=== PATIENT | female | born 1960 | race Caucasian/White ===

== ENCOUNTER 2017-02-02 01:13 | Emergency (ER) | payer BC ==
[2017-02-02] MEDS ORDERED: Sodium Chloride 0.9% 1000 ML 1,000 ML IV STA (01:15)
--- NOTE | 2017-02-02 01:27 | ERPHSYRPT ---
- History of Present Illness Time Seen by Provider: 02/02/17 01:13 Source: patient Exam Limitations: no limitations Physician History: ABOUT 90 MINUTES AGO PT STARTED WITH SHARP POSTERIOR THIGH PAIN, DIAPHORESIS, SHORTNESS OF AIR, HEADACHE AND IMPENDING FAINT. 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 PT ALSO C/O LIGHT BROWN DIARRHEA WITHOUT BLOOD TONIGHT. Allergies/Adverse Reactions: Penicillins Allergy (Mild, Verified 02/02/17 01:38) Home Medications: Famotidine 20 mg [Pepcid 20 MG] 20 mg PO DAILY 02/02/17 [History] Levothyroxine Sodium [Synthroid] 200 mcg PO DAILY 02/02/17 [History] Lisinopril 5 mg [Zestril 5 MG] 5 mg PO DAILY 02/02/17 [History] Hx Tetanus, Diphtheria Vaccination/Date Given: No Hx Influenza Vaccination/Date Given: Yes Hx Pneumococcal Vaccination/Date Given: No - Review of Systems Respiratory: Dyspnea Abdominal/Gastrointestinal: Diarrhea Musculoskeletal: Other (BILATERAL POSTERIOR THIGH PAIN TONIGHT) Neurological: Headache Endocrine: Excessive Sweating All Other Systems: Reviewed and Negative - Past Medical History Pertinent Past Medical History: Yes Neurological History: No Pertinent History ENT History: No Pertinent History Cardiac History: No Pertinent History Respiratory History: No Pertinent History Endocrine Medical History: No Pertinent History Musculoskeletal History: Osteoarthritis GI Medical History: Diverticulitis, Diverticulosis History: No Pertinent History Psycho-Social History: No Pertinent History Female Reproductive Disorders: No Pertinent History - Past Surgical History Past Surgical History: Yes Neuro Surgical History: No Pertinent History Cardiac: No Pertinent History Respiratory: No Pertinent History Gastrointestinal: No Pertinent History Genitourinary: No Pertinent History Musculoskeletal: Other Female Surgical History: Section Other Surgical History: Carpal tunnel surgery. Colonoscopy - Social History Smoking Status: Current every day smoker How long have you smoked: 20 Exposure to second hand smoke: No Drug Use: none Patient Lives Alone: No - Female History Hx Now: No - Nursing Vital Signs Nursing Vital Signs: Initial Vital Signs Temperature 98.1 F 02/02/17 01:20 Pulse Rate 76 02/02/17 01:20 Respiratory Rate 18 02/02/17 01:20 Blood Pressure 130/75 02/02/17 01:20 O2 Sat by Pulse Oximetry 98 02/02/17 01:20 Pain Scale Pain Intensity 0 - Physical Exam General Appearance: alert Eye Exam: PERRL/EOMI Ears, Nose, Throat Exam: TMs normal, pharynx normal, moist mucous membranes Neck Exam: normal inspection Respiratory Exam: lungs clear Cardiovascular Exam: normal heart sounds Gastrointestinal/Abdomen Exam: soft, normal bowel sounds Back Exam: normal range of motion Extremity Exam: normal inspection, normal range of motion, No pedal edema Neurologic Exam: alert, cooperative, normal mood/affect, sensation nml, No motor deficits Skin Exam: warm, dry - Course Nursing assessment & vital signs reviewed: Yes EKG Interpreted by Me: RATE (58), Sinus Alberto, NORMAL AXIS, NORMAL INTERVALS - Radiology Exams Chest X-ray Interpretation: Interpreted by me, No Pneumonia Ordered Tests: Active Orders 24 hr Category Date Time Status Digital Measurement Advisor STAT Care 02/02/17 01:19 Active EKG-ER Only STAT Care 02/02/17 01:15 Active IV Insertion STAT Care 02/02/17 01:15 Active Oxygen-ED Only NASAL CANNULA 2 lpm Care 02/02/17 01:15 Active CHEST 2 VIEWS (PA AND LAT) Stat Exams 02/02/17 01:18 Taken AMYLASE Stat Lab 02/02/17 01:36 Completed CBC W DIFF Stat Lab 02/02/17 01:36 Completed CK-Creatinine Phosphokinase Urgent Lab 02/02/17 01:36 Completed CMP Stat Lab 02/02/17 01:36 Completed CULTURE,URINE Stat Lab 02/02/17 02:15 Received D-DIMER QUANTITATION Stat Lab 02/02/17 01:36 Completed ETHYL ALCOHOL Stat Lab 02/02/17 01:36 Completed LIPASE Stat Lab 02/02/17 01:36 Completed MAGNESIUM Stat Lab 02/02/17 01:36 Completed NT PRO BNP Stat Lab 02/02/17 01:36 Completed Occult Blood,Stool Other Stat Lab 02/02/17 01:45 Uncollected TROPONIN Q3H Lab 02/02/17 01:36 Completed TROPONIN Q3H Lab 02/02/17 04:30 Ordered TROPONIN Q3H Lab 02/02/17 07:30 Ordered TROPONIN Q3H Lab 02/02/17 10:30 Ordered TROPONIN Q3H Lab 02/02/17 13:30 Ordered UA W/ MICROSCOPIC Stat Lab 02/02/17 02:15 Completed Urine Triage Profile Stat Lab 02/02/17 02:20 Completed Medication Summary Discontinued Medications Generic Name Dose Route Start Last Admin Trade Name Marylu PRN Reason Stop Dose Admin Hydromorphone HCl 0.5 mg 02/02/17 03:39 Hydromorphone 1 Mg/Ml Ampule IV 02/02/17 03:40 STAT ONE Sodium Chloride 1,000 mls @ 999 mls/hr 02/02/17 01:15 02/02/17 01:43 Sodium Chloride 0.9% 1000 Ml IV 02/02/17 02:15 999 mls/hr .Q1H1M STA Administration Sodium Chloride Confirm 02/02/17 01:42 Sodium Chloride 0.9% 1000 Ml Administered 02/02/17 01:43 Dose 1,000 mls @ ud .ROUTE .STK-MED ONE Promethazine HCl 12.5 mg 02/02/17 03:39 Phenergan 25 Mg Inj IV 02/02/17 03:40 STAT ONE Trimethoprim/Sulfamethoxazole 1 tab 02/02/17 03:35 Bactrim Ds Tablet PO 02/02/17 03:36 STAT ONE Lab/Rad Data: Laboratory Result Diagrams 02/02/17 01:36 02/02/17 01:36 Laboratory Results 02/02/17 02/02/17 02/02/17 Range/Units 02:20 02:15 01:36 WBC (4.0-10.5) K/mm3 RBC (4.1-5.4) M/mm3 Hgb (12.0-16.0) gm/dl Hct (35-47) % MCV (78-100) fl MCH (26-32) pg MCHC (32-36) g/dl RDW (11.5-14.0) % Plt Count (150-450) K/mm3 MPV (6-9.5) fl Gran % (36.0-66.0) % Lymphocytes % (24.0-44.0) % Monocytes % (0.0-12.0) % Eosinophils % (0.00-5.0) % Basophils % (0.0-0.4) % Basophils # (0-0.4) D-Dimer (0-500) ng/mL Sodium (136-145) mEq/L Potassium (3.5-5.1) mEq/L Chloride (98-107) mEq/L Carbon Dioxide (21-32) mEq/L Anion Gap (5-15) MEQ/L BUN (9-20) mg/dL Creatinine (0.55-1.30) mg/dl Estimated GFR ML/MIN Glucose (70-110) MG/DL Calcium (8.5-10.1) mg/dL Magnesium (1.8-2.4) mg/dL Total Bilirubin (0.2-1.0) mg/dL AST (15-37) U/L ALT (12-78) U/L Alkaline Phosphatase (46-116) U/L Creatine Kinase 89 (26-192) U/L Troponin I < 0.017 (0.000-0.056) ng/ml NT-Pro-B Natriuret Pep (0-125) pg/ml Serum Total Protein (6.4-8.2) gm/dL Albumin (3.4-5.0) g/dL Amylase (25-115) U/L Lipase (73-393) U/L Ur Collection Type VOID Urine Color YELLOW (YELLOW) Urine Appearance SLIGHTLY CLOUDY (CLEAR) Urine pH 6.0 (5-6) Ur Specific [place] 1.025 (1.005-1.025) Urine Protein TRACE (Negative) Urine Ketones NEGATIVE (NEGATIVE) Urine Blood 50 (0-5) Ab[place]han/ul Urine Nitrite NEGATIVE (NEGATIVE) Urine Bilirubin NEGATIVE (NEGATIVE) Urine Urobilinogen NORMAL (0-1) mg/dL Ur Leukocyte Esterase 2+ (NEGATIVE) Urine Microscopic RBC 0-2 (0-2) /HPF Urine Microscopic WBC 2-5 (0-5) /HPF Ur Epithelial Cells MODERATE (FEW) /HPF Urine Bacteria FEW (NEGATIVE) /HPF Urine Mucus SLIGHT (NEGATIVE) /HPF Urine Culture Reflexed YES (NO) Urine Glucose NEGATIVE (NEGATIVE) mg/dL Urine Opiates Level NEG. (NEGATIVE) Ur Methadone NEG. (NEGATIVE) Urine Barbiturates NEG. (NEGATIVE) Ur Phencyclidine (PCP) NEG. (NEGATIVE) Urine Amphetamine NEG. (NEGATIVE) U Benzodiazepine Level NEG. (NEGATIVE) Urine Cocaine NEG. (NEGATIVE) Urine Marijuana (THC) NEG. (NEGATIVE) Ethyl Alcohol (0.00-0.01) % Specimen Received 02/02/17 0215 02/02/17 02/02/17 02/02/17 Range/Units 01:36 01:36 01:36 WBC 7.4 (4.0-10.5) K/mm3 RBC 3.98 L (4.1-5.4) M/mm3 Hgb 12.4 (12.0-16.0) gm/dl Hct 37.3 (35-47) % MCV 93.7 (78-100) fl MCH 31.1 (26-32) pg MCHC 33.2 (32-36) g/dl RDW 12.8 (11.5-14.0) % Plt Count 253 (150-450) K/mm3 MPV 9.3 (6-9.5) fl Gran % 61.2 (36.0-66.0) % Lymphocytes % 29.0 (24.0-44.0) % Monocytes % 7.9 (0.0-12.0) % Eosinophils % 1.4 (0.00-5.0) % Basophils % 0.5 (0.0-0.4) % Basophils # 0.04 (0-0.4) D-Dimer 361 (0-500) ng/mL Sodium 143 (136-145) mEq/L Potassium 3.8 (3.5-5.1) mEq/L Chloride 106 (98-107) mEq/L Carbon Dioxide 30.5 (21-32) mEq/L Anion Gap 10.0 (5-15) MEQ/L BUN 16 (9-20) mg/dL Creatinine 0.76 (0.55-1.30) mg/dl Estimated GFR > 60 ML/MIN Glucose 81 (70-110) MG/DL Calcium 9.0 (8.5-10.1) mg/dL Magnesium 1.9 (1.8-2.4) mg/dL Total Bilirubin 0.20 (0.2-1.0) mg/dL AST 19 (15-37) U/L ALT 21 (12-78) U/L Alkaline Phosphatase 94 (46-116) U/L Creatine Kinase (26-192) U/L Troponin I (0.000-0.056) ng/ml NT-Pro-B Natriuret Pep 58 (0-125) pg/ml Serum Total Protein 7.2 (6.4-8.2) gm/dL Albumin 3.5 (3.4-5.0) g/dL Amylase 46 (25-115) U/L Lipase 115 (73-393) U/L Ur Collection Type Urine Color (YELLOW) Urine Appearance (CLEAR) Urine pH (5-6) Ur Specific [place] (1.005-1.025) Urine Protein (Negative) Urine Ketones (NEGATIVE) Urine Blood (0-5) Abrahan/ul Urine Nitrite (NEGATIVE) Urine Bilirubin (NEGATIVE) Urine Urobilinogen (0-1) mg/dL Ur Leukocyte Esterase (NEGATIVE) Urine Microscopic RBC (0-2) /HPF Urine Microscopic WBC (0-5) /HPF Ur Epithelial Cells (FEW) /HPF Urine Bacteria (NEGATIVE) /HPF Urine Mucus (NEGATIVE) /HPF Urine Culture Reflexed (NO) Urine Glucose (NEGATIVE) mg/dL Urine Opiates Level (NEGATIVE) Ur Methadone (NEGATIVE) Urine Barbiturates (NEGATIVE) Ur Phencyclidine (PCP) (NEGATIVE) Urine Amphetamine (NEGATIVE) U Benzodiazepine Level (NEGATIVE) Urine Cocaine (NEGATIVE) Urine Marijuana (THC) (NEGATIVE) Ethyl Alcohol < 0.010 (0.00-0.01) % Specimen Received - Departure Time of Disposition: 03:51 Departure Disposition: Home Clinical Impression: BILATERAL THIGH PAIN, DYSPNEA, IMPENDING FAINT, UTI, ARTHRITIS Condition: Stable Critical Care Time: No Referrals: CHERI WOODWARD MD [Primary Care Provider] - Instructions: Fainting, Muscle Strain, Urinary Tract Infection (UTI) Additional Instructions: FOLLOW UP WITH PRIVATE DOCTOR TOMORROW. Prescriptions: Cyclobenzaprine HCl [Flexeril] 10 mg PO Q8H PRN #20 tablet Smz/Tmp Ds Tablet [Bactrim Ds Tablet] 1 udtab PO BID #20 tablet
[2017-02-02] MEDS ORDERED: Sodium Chloride 0.9% 1000 ML 1,000 ML ONE (01:42)
[2017-02-02 01:43] LABS: BASOPHIL % 0.5 % (0.0-0.4); Eosinophil % 1.4 % (0.00-5.0); Granulocytes % 61.2 % (36.0-66.0); Mean Cell Volume 93.7 fl (78-100); Mean Platelet Volume 9.3 fl (6-9.5); Monocytes % 7.9 % (0.0-12.0); Platelet Count 253 K/mm3 (150-450); Red Blood Count 3.98 M/mm3 (4.1-5.4); Red Cell Distribution Width 12.8 % (11.5-14.0); White Blood Count 7.4 K/mm3 (4.0-10.5)
[2017-02-02 01:44] LABS: Mean Corpuscular Hemoglobin 31.1 pg (26-32)
[2017-02-02 02:12] LABS: ALBUMIN 3.5 g/dL (3.4-5.0); ALKALINE PHOSPHATASE 94 U/L (46-116); BLOOD UREA NITROGEN 16 mg/dL (9-20); CHLORIDE 106 mEq/L (98-107); Carbon Dioxide 30.5 mEq/L (21-32); ETHYL ALCOHOL < 0.010 % (0.00-0.01); Glucose 81 MG/DL (70-110); LIPASE 115 U/L (73-393); MAGNESIUM 1.9 mg/dL (1.8-2.4); Potassium 3.8 mEq/L (3.5-5.1); SGOT/AST 19 U/L (15-37); SGPT/ALT 21 U/L (12-78); SODIUM 143 mEq/L (136-145); Total Protein 7.2 gm/dL (6.4-8.2)
[2017-02-02 02:13] LABS: TROPONIN < 0.017 ng/ml (0.000-0.056)
[2017-02-02 02:39] LABS: Bacteria FEW /HPF (NEGATIVE); Bilirubin NEGATIVE (NEGATIVE); Blood 50 Ery/ul (0-5); Collection Type VOID; Epithelial Cells MODERATE /HPF (FEW); Glucose NEGATIVE (NEGATIVE); Leukocyte Esterase 2+ (NEGATIVE); Mucus SLIGHT /HPF (NEGATIVE)
[2017-02-02 02:40] LABS: ADD URINE CULTURE? YES (NO); COMPLETE URINE MICROSCOPIC? YES
[2017-02-02] MEDS ORDERED: BACTRIM DS TABLET PO ONE ×2 (03:35→03:47)
[2017-02-02] MEDS ORDERED: Phenergan 25 MG INJ IV ONE (03:39)
[2017-02-02] MEDS ORDERED: Hydromorphone 1 mg/ml Ampule IV ONE (03:39)
[2017-02-02] MEDS ORDERED: Phenergan 25 MG INJ ONE (03:46)
[2017-02-02] MEDS ORDERED: Hydromorphone 1 mg/ml Ampule ONE (03:47)
[2017-02-02 04:02] VITALS: BP 132/79; PULSE 67; O2SAT 97
--- NOTE | 2017-02-02 09:11 | XRAY ---
Indication: Short of breath, syncope, and leg cramps. Comparison: None AP/lateral chest hyperinflated with minimal lingular fibrosis/scarring. Remaining heart and lungs unremarkable. Bony thorax intact with mild spinal degenerative changes and mild dextroscoliosis. Impression: Nonacute hyperinflated chest with chronic features.
== END 2017-02-02 04:15 | disposition home or self-care (01) ==
LOC: ED 01:13
DX: M79.652 Pain in left thigh (principal); M79.651 Pain in right thigh; R06.00 Dyspnea, unspecified; N39.0 Urinary tract infection, site not specified; M19.90 Unspecified osteoarthritis, unspecified site; R55 Syncope and collapse; R51 Headache
CPT/HCPCS: 36415; 71020; 80053; 80307; 81000; 82150; 82550; 83690; 83735; 83880; 84484; 85025; 85379; 87086; 93005; 93041; 96360; 96374; 96375; 99284; G0481; J1170; J2550; A9270-GY

== ENCOUNTER 2021-07-28 01:03 | Emergency (ER) | payer MEDICARE ==
[2021-07-28] MEDS ORDERED: MORPHINE SULFATE 2 MG INJ IV ONE (01:29)
[2021-07-28] MEDS ORDERED: Zofran 4 MG/2 ML VIAL IV ONE (01:29)
[2021-07-28] MEDS ORDERED: Sodium Chloride 0.9% 1000 ML 1,000 ML IV SCH (01:30)
[2021-07-28] MEDS ORDERED: Zofran 4 MG/2 ML VIAL ONE (01:33)
[2021-07-28] MEDS ORDERED: MORPHINE SULFATE 2 MG INJ ONE (01:33)
[2021-07-28] MEDS ORDERED: Sodium Chloride 0.9% 1000 ML 1,000 ML ONE (01:34)
--- NOTE | 2021-07-28 01:37 | ERPHSYRPT ---
- History of Present Illness Time Seen by Provider: 07/28/21 01:20 Historian: patient Exam Limitations: no limitations Patient Subjective Stated Complaint: Patient c/o left lower adominal pait. She states the pain began yesterday evening in her right lower abdomen and was intermittent. The pain is now constant and has moved into her left lower abdomen and right lower back. Patient reports loose stools yesterday evening; last one around 3 or 4pm. States, "it feels like I have diverticulitis again." Triage Nursing Assessment: Patient ambulated back to ED holding her left lower abdomen. She is alert and oriented and answering questions appropriately. Hypoactive bowel sounds noted in upper abd quads. Nurse unable to hear any bowel sounds in lower quads. Patient jerked/jumped when palpating left lower abdomen. No SOB noted. Physician History: Patient is a 61-year-old female presents to our ED with complaints of lower abdominal pain. Patient states pain started yesterday on the right lower quadrant. Pain was intermittent. Patient states the pain is now moved to her left lower quadrant. Pain associated with loose stools. No nausea or vomiting. Patient took Aleve at noon today. Patient took Tylenol arthritis at 5 PM. No trauma. No fever. No rash. Symptoms are moderate in intensity. Pain worse with abdominal palpation. Pain improved with rest. Patient voices no other complaints or concerns at this time. Timing/Duration: yesterday Activities at Onset: none Quality: aching Abdominal Pain Onset Location: LLQ Pain Radiation: back Severity of Pain-Max: moderate Severity of Pain-Current: mild Modifying Factors: Improves With: palpation Associated Symptoms: other (Diarrhea) Previous symptoms: same symptoms as today Allergies/Adverse Reactions: Penicillins Allergy (Mild, Verified 07/28/21 01:05) cephalexin [From Keflex] Allergy (Verified 07/28/21 01:05) Home Medications: Albuterol Sulfate [Albuterol Sulfate Hfa] 2 puff PO Q4H PRN PRN 07/28/21 [History] Alendronate Sodium 1 tab PO WEEKLY 07/28/21 [History] Atorvastatin Calcium 1 tab PO HS 07/28/21 [History] Cetirizine HCl 1 tab PO DAILY 07/28/21 [History] Cholecalciferol (Vitamin D3) [Vitamin D3] 1 cap PO DAILY 07/28/21 [History] Duloxetine HCl 30 mg [Cymbalta 30 MG Capsule] 1 tab PO DAILY 07/28/21 [History] Fluticasone Propionate [Flonase Allergy Relief] 2 spray INTRANASAL DAILY 07/28/21 [History] Levothyroxine Sodium [Synthroid] 1 tab PO DAILY 07/28/21 [History] lisinopriL [Lisinopril] 1 tab PO DAILY 07/28/21 [History] Hx Tetanus, Diphtheria Vaccination/Date Given: Yes Hx Influenza Vaccination/Date Given: Yes Hx Pneumococcal Vaccination/Date Given: Yes Immunizations Up to Date: Yes Travel Risk - International Travel Have you traveled outside of the country in past 3 weeks: No - Coronavirus Screening Are you exhibiting any of the following symptoms?: No Close contact with a COVID-19 positive Pt in past 14-21 Days: No - Vaccine Status Have you recieved a Covid-19 vaccination: Yes [employer] Feeder: Moderna - Vaccination Dates Date of 2cond Vaccination (if applicable): 2020 - Review of Systems Constitutional: No Symptoms, No Fever, No Chills Eyes: No Symptoms Ears, Nose, & Throat: No Symptoms Respiratory: No Symptoms, No Cough, No Dyspnea Cardiac: No Symptoms, No Chest Pain, No Edema, No Syncope Abdominal/Gastrointestinal: No Symptoms, No Abdominal Pain, No Nausea, No Vomiting, No Diarrhea Genitourinary Symptoms: No Symptoms, No Dysuria Musculoskeletal: No Symptoms, No Back Pain, No Neck Pain Skin: No Symptoms, No Rash Neurological: No Symptoms, No Dizziness, No Focal Weakness, No Sensory Changes Psychological: No Symptoms Endocrine: No Symptoms Hematologic/Lymphatic: No Symptoms Immunological/Allergic: No Symptoms All Other Systems: Reviewed and Negative - Past Medical History Pertinent Past Medical History: Yes Neurological History: No Pertinent History ENT History: No Pertinent History Cardiac History: Arrhythmia, High Cholesterol, Hypertension, Other Respiratory History: Asthma Endocrine Medical History: Hypoglycemia, Thyroid Cancer Musculoskeletal History: Arthritis, Osteoarthritis, Other GI Medical History: Diverticulitis, Diverticulosis History: No Pertinent History Psycho-Social History: No Pertinent History Female Reproductive Disorders: No Pertinent History Other Medical History: Osteopenia - Past Surgical History Past Surgical History: Yes Neuro Surgical History: No Pertinent History Cardiac: No Pertinent History Respiratory: No Pertinent History Gastrointestinal: No Pertinent History Genitourinary: No Pertinent History Musculoskeletal: Other Female Surgical History: Section Other Surgical History: Carpal tunnel surgery, total knee replacement (lt), thyroid removed due to CA, Colonoscopy - Social History Smoking Status: Former smoker How long have you smoked: 20 Exposure to second hand smoke: No Drug Use: none Patient Lives Alone: No - Nursing Vital Signs Nursing Vital Signs: Initial Vital Signs Temperature 97.9 F 07/28/21 01:07 Pulse Rate 82 07/28/21 01:07 Respiratory Rate 18 07/28/21 01:07 Blood Pressure 158/105 07/28/21 01:07 O2 Sat by Pulse Oximetry 98 07/28/21 01:07 Pain Scale Pain Intensity 5 - Physical Exam General Appearance: no apparent distress, alert Eye Exam: PERRL/EOMI, eyes nml inspection Ears, Nose, Throat Exam: normal ENT inspection, pharynx normal, moist mucous membranes Neck Exam: normal inspection, non-tender, supple, full range of motion Respiratory Exam: normal breath sounds, lungs clear, No respiratory distress Cardiovascular Exam: regular rate/rhythm, normal heart sounds Gastrointestinal/Abdomen Exam: soft, tenderness (Left lower quadrant tenderness to palpation. Hypoactive bowel sounds overlying soft tissue intact.), guarding ( Guarding present), No mass Back Exam: normal inspection, normal range of motion, No CVA tenderness, No vertebral tenderness Extremity Exam: normal inspection, normal range of motion, pelvis stable Neurologic Exam: alert, oriented x 3, cooperative, normal mood/affect, nml cerebellar function, sensation nml, No motor deficits Skin Exam: normal color, warm, dry Lymphatic Exam: No adenopathy SpO2 Interpretation: normal SpO2: 98 O2 Delivery: Room Air - Course Nursing assessment & vital signs reviewed: Yes - CT Exams Abdomen/Pelvis CT Interpretation: Tele-radiologist Report (Diverticulosis is marked in the colon. Short segment of distal descending colonic wall thickening consistent with acute colitis/diverticulitis. As an underlying colonic malignancy cannot be excluded a follow-up examination after course of treatment is recommended) Ordered Tests: Active Orders 24 hr Category Date Time Status IV Insertion STAT Care 07/28/21 01:29 Active ABDOMEN AND PELVIS W CONTRAST [CT] Stat Exams 07/28/21 01:30 Taken CBC W DIFF Stat Lab 07/28/21 01:29 Completed CMP Stat Lab 07/28/21 01:29 Completed LIPASE Stat Lab 07/28/21 01:29 Completed TROPONIN Q3H Lab 07/28/21 01:30 Completed TROPONIN Q3H Lab 07/28/21 04:30 Ordered TROPONIN Q3H Lab 07/28/21 07:30 Ordered TROPONIN Q3H Lab 07/28/21 10:30 Ordered TROPONIN Q3H Lab 07/28/21 13:30 Ordered Medication Summary Generic Name Dose Route Start Last Admin Trade Name Frezuleika PRN Reason Stop Dose Admin Sodium Chloride 1,000 mls @ 100 mls/hr 07/28/21 01:30 07/28/21 01:37 Sodium Chloride 0.9% 1000 Ml IV 08/27/21 01:29 100 mls/hr .Q10H MIGUEL ANGEL Administration Metronidazole 500 mg 07/28/21 04:22 Metronidazole 500 Mg Tablet PO 07/28/21 04:23 STAT ONE Discontinued Medications Generic Name Dose Route Start Last Admin Trade Name Marylu PRN Reason Stop Dose Admin Hydrocodone Bitart/Acetaminophen 4 tab 07/28/21 04:06 07/28/21 04:08 Hydrocodone/Apap 5/325 Mg Tablet PO 07/28/21 04:07 4 tab STAT ONE Administration Hydrocodone Bitart/Acetaminophen Confirm 07/28/21 04:08 Hydrocodone/Apap 5/325 Mg Tablet Administered 07/28/21 04:09 Dose 4 tab .ROUTE .STK-MED ONE Morphine Sulfate 2 mg 07/28/21 01:29 07/28/21 01:36 Morphine Sulfate 2 Mg/Ml Inj IV 07/28/21 01:30 2 mg STAT ONE Administration Morphine Sulfate Confirm 07/28/21 01:33 Morphine Sulfate 2 Mg/Ml Inj Administered 07/28/21 01:34 Dose 2 mg .ROUTE .STK-MED ONE Morphine Sulfate 4 mg 07/28/21 03:50 07/28/21 04:01 Morphine Sulfate 4 Mg/Ml Injection IV 07/28/21 03:51 4 mg STAT ONE Administration Morphine Sulfate Confirm 07/28/21 04:00 Morphine Sulfate 4 Mg/Ml Injection Administered 07/28/21 04:01 Dose 4 mg .ROUTE .STK-MED ONE Ondansetron HCl 4 mg 07/28/21 01:29 07/28/21 01:36 Ondansetron Hcl 4 Mg/2 Ml Vial IV 07/28/21 01:30 4 mg STAT ONE Administration Ondansetron HCl Confirm 07/28/21 01:33 Ondansetron Hcl 4 Mg/2 Ml Vial Administered 07/28/21 01:34 Dose 4 mg .ROUTE .STK-MED ONE Trimethoprim/Sulfamethoxazole 1 tab 07/28/21 04:07 07/28/21 04:12 Smz/Tmp Ds Tablet 1 Tablet PO 07/28/21 04:08 1 tab STAT STA Administration Trimethoprim/Sulfamethoxazole Confirm 07/28/21 04:11 Smz/Tmp Ds Tablet 1 Tablet Administered 07/28/21 04:12 Dose 1 tab PO .STK-MED ONE Lab/Rad Data: Laboratory Result Diagrams 07/28/21 01:29 07/28/21 01:29 Laboratory Results 07/28/21 07/28/21 07/28/21 Range/Units 01:32 01:30 01:29 WBC (4.0-10.5) K/mm3 RBC (4.1-5.4) M/mm3 Hgb (12.0-16.0) gm/dl Hct (35-47) % MCV (78-100) fl MCH (26-32) pg MCHC (32-36) g/dl RDW (11.5-14.0) % Plt Count (150-450) K/mm3 MPV (7.5-11.0) fl Gran % (36.0-66.0) % Eos # (Auto) (0-0.5) Absolute Lymphs (auto) (1.0-4.6) Absolute Monos (auto) (0.0-1.3) Lymphocytes % (24.0-44.0) % Monocytes % (0.0-12.0) % Eosinophils % (0.00-5.0) % Basophils % (0.0-0.4) % Absolute Granulocytes (1.4-6.9) Basophils # (0-0.4) Sodium 140 (137-145) mmol/L Potassium 4.4 (3.5-5.1) mmol/L Chloride 103 (98-107) mmol/L Carbon Dioxide 24 (22-30) mmol/L Anion Gap 17.3 H (5-15) MEQ/L BUN 10 (7-17) mg/dL Creatinine 0.58 (0.52-1.04) mg/dL Estimated GFR > 60.0 ML/MIN Glucose 110 H (74-106) mg/dL Calcium 9.8 (8.4-10.2) mg/dL Total Bilirubin 0.60 (0.2-1.3) mg/dL AST 25 (14-36) U/L ALT 18 (0-35) U/L Alkaline Phosphatase 107 (38-126) U/L Troponin I < 0.012 (0.000-0.034) ng/mL Serum Total Protein 7.6 (6.3-8.2) g/dL Albumin 4.4 (3.5-5.0) g/dL Lipase 36 (23-300) U/L Urinalys Dipstick Clnc MAIN LAB Urine Color YELLOW (YELLOW) Urine Appearance CLEAR (CLEAR) Urine pH 5.5 (5-6) Ur Specific [place] 1.020 (1.005-1.025) POC Urine Protein Conf NEGATIVE (Negative) Urine Ketones NEGATIVE (NEGATIVE) Urine Nitrite NEGATIVE (NEGATIVE) Urine Bilirubin NEGATIVE (NEGATIVE) Urine Urobilinogen 0.2 (0-1) mg/dL Urine Leukocytes NEGATIVE (NEGATIVE) Urine WBC (Auto) 0-2 (0-5) /HPF Urine RBC (Auto) 0-2 (0-2) /HPF U Epithel Cells (Auto) RARE (FEW) /HPF Urine RBC TRACE-INTACT (0-5) Abrahan/ul Ur Culture Indicated? NO Urine Glucose NEGATIVE (NEGATIVE) mg/dL 07/28/21 Range/Units 01:29 WBC 9.7 (4.0-10.5) K/mm3 RBC 4.51 (4.1-5.4) M/mm3 Hgb 14.4 (12.0-16.0) gm/dl Hct 42.6 (35-47) % MCV 94.5 (78-100) fl MCH 31.9 (26-32) pg MCHC 33.8 (32-36) g/dl RDW 13.1 (11.5-14.0) % Plt Count 289 (150-450) K/mm3 MPV 9.5 (7.5-11.0) fl Gran % 71.1 H (36.0-66.0) % Eos # (Auto) 0.11 (0-0.5) Absolute Lymphs (auto) 1.95 (1.0-4.6) Absolute Monos (auto) 0.69 (0.0-1.3) Lymphocytes % 20.1 L (24.0-44.0) % Monocytes % 7.1 (0.0-12.0) % Eosinophils % 1.1 (0.00-5.0) % Basophils % 0.6 (0.0-0.4) % Absolute Granulocytes 6.87 (1.4-6.9) Basophils # 0.06 (0-0.4) Sodium (137-145) mmol/L Potassium (3.5-5.1) mmol/L Chloride (98-107) mmol/L Carbon Dioxide (22-30) mmol/L Anion Gap (5-15) MEQ/L BUN (7-17) mg/dL Creatinine (0.52-1.04) mg/dL Estimated GFR ML/MIN Glucose (74-106) mg/dL Calcium (8.4-10.2) mg/dL Total Bilirubin (0.2-1.3) mg/dL AST (14-36) U/L ALT (0-35) U/L Alkaline Phosphatase (38-126) U/L Troponin I (0.000-0.034) ng/mL Serum Total Protein (6.3-8.2) g/dL Albumin (3.5-5.0) g/dL Lipase (23-300) U/L Urinalys Dipstick Clnc Urine Color (YELLOW) Urine Appearance (CLEAR) Urine pH (5-6) Ur Specific [place] (1.005-1.025) POC Urine Protein Conf (Negative) Urine Ketones (NEGATIVE) Urine Nitrite (NEGATIVE) Urine Bilirubin (NEGATIVE) Urine Urobilinogen (0-1) mg/dL Urine Leukocytes (NEGATIVE) Urine WBC (Auto) (0-5) /HPF Urine RBC (Auto) (0-2) /HPF U Epithel Cells (Auto) (FEW) /HPF Urine RBC (0-5) Ab[place]han/ul Ur Culture Indicated? Urine Glucose (NEGATIVE) mg/dL - Progress Progress: improved Progress Note: Case discussed with Dr. Murphy. Dr. Murphy advised discharging and following up with Dr. Jones. Patient states she can see wood this morning at 9 AM. Patient giving [place] for home. Bactrim and flagyl antibiotic administered orally. Patient requested Bactrim as this was successful in treating her last bout of diverticulitis A prescription for Bactrim and Flagyl was forwarded to patient's pharmacy. A copy of patient's CT scan report was provided to patient to share with Dr. Jones this morning. Patient voices no other complaints or concerns at this time. 07/28/21 04:11 Portions of this note were created with voice recognition technology. There may be grammatical, spelling, punctuation or sound alike errors 07/28/21 04:[address] Rachel Counseled pt/family regarding: lab results, diagnosis, need for follow-up, rad results - Departure Departure Disposition: Home Clinical Impression: Diverticulosis, Diverticulitis, Colitis Condition: Stable Critical Care Time: No Referrals: HANNAH JONES [Primary Care Provider] - Follow up/PCP as directed Prescriptions: Smz/Tmp Ds Tablet [Bactrim Ds Tablet] 1 udtab PO BID 7 Days #14 tablet Metronidazole 500 mg [Flagyl 500 MG] 500 mg PO BID 7 Days #14 tablet
[2021-07-28 01:42] LABS: Absolute Neutrophil Ct (ANC) 6.87 (1.4-6.9); Basophil (Absolute #) 0.06 (0-0.4); Eosinophil % 1.1 % (0.00-5.0); Eosinophil (Absolute #) 0.11 (0-0.5); Hematocrit 42.6 % (35-47); Hemoglobin 14.4 gm/dl (12.0-16.0); Lymphocyte (Absolute #) 1.95 (1.0-4.6); Lymphocytes % 20.1 % (24.0-44.0); Mean Cell Volume 94.5 fl (78-100); Mean Corpuscular Hemoglobin 31.9 pg (26-32); Mean Corpuscular Hgb Concent. 33.8 g/dl (32-36); Mean Platelet Volume 9.5 fl (7.5-11.0); Monocyte (Absolute #) 0.69 (0.0-1.3); Monocytes % 7.1 % (0.0-12.0); Neutrophil % 71.1 % (36.0-66.0); Platelet Count 289 K/mm3 (150-450); Red Blood Count 4.51 M/mm3 (4.1-5.4); Red Cell Distribution Width 13.1 % (11.5-14.0); White Blood Count 9.7 K/mm3 (4.0-10.5)
[2021-07-28 01:47] LABS: Appearance CLEAR (CLEAR); Bilirubin NEGATIVE (NEGATIVE); Epithelial Cells RARE /HPF (FEW); Glucose NEGATIVE (NEGATIVE); Ketones NEGATIVE (NEGATIVE); RBC 0-2 /HPF (0-2); WBC 0-2 /HPF (0-5)
[2021-07-28 01:48] LABS: Nitrite NEGATIVE (NEGATIVE); Ph 5.5 (5-6); Protein,Urine Dip NEGATIVE (Negative); RBC TRACE-INTACT Ery/ul (0-5); Urine Cultured Indicated? NO; Urobilinogen 0.2 mg/dL (0-1)
[2021-07-28 01:54] LABS: ALBUMIN 4.4 g/dL (3.5-5.0); ALKALINE PHOSPHATASE 107 U/L (38-126); ANION GAP 17.3 MEQ/L (5-15); BLOOD UREA NITROGEN 10 mg/dL (7-17); CHLORIDE 103 mmol/L (98-107); Calcium 9.8 mg/dL (8.4-10.2); Carbon Dioxide 24 mmol/L (22-30); Creatinine 1 0.58 mg/dL (0.52-1.04); EST GLOMERULAR FILTRATION RATE > 60.0 ML/MIN; Glucose 110 mg/dL (74-106); LIPASE 36 U/L (23-300); Potassium 4.4 mmol/L (3.5-5.1); SGOT/AST 25 U/L (14-36); SGPT/ALT 18 U/L (0-35); SODIUM 140 mmol/L (137-145); Total Protein 7.6 g/dL (6.3-8.2)
[2021-07-28 02:01] LABS: Dipstick done @ ? MAIN LAB
[2021-07-28] MEDS ORDERED: MORPHINE SULFATE 4 MG INJ IV ONE (03:50)
[2021-07-28] MEDS ORDERED: MORPHINE SULFATE 4 MG INJ ONE (04:00)
[2021-07-28] MEDS ORDERED: NORCO 5/325 MG PO ONE (04:06)
[2021-07-28 04:07] VITALS: BP 104/59; PULSE 72
[2021-07-28] MEDS ORDERED: BACTRIM DS TABLET PO STA (04:07)
[2021-07-28] MEDS ORDERED: NORCO 5/325 MG ONE (04:08)
[2021-07-28] MEDS ORDERED: BACTRIM DS TABLET PO ONE (04:11)
[2021-07-28 04:13] VITALS: O2SAT 98
[2021-07-28] MEDS ORDERED: Flagyl 500 MG PO ONE (04:22)
[2021-07-28] MEDS ORDERED: Flagyl 500 MG ONE (04:22)
--- NOTE | 2021-07-28 08:49 | XRAY ---
Indication: Abdomen/pelvic pain. History diverticulitis. Multiple contiguous axial images obtained through the abdomen and pelvis using 80 cc Isovue 370 contrast. Comparison: None Lung bases demonstrates minimal fibrosis/scarring. No infiltrate or effusion. Heart is not enlarged. Noncontrasted stomach and bowel loops appear nonobstructed with normal appendix. Diffuse scattered colonic diverticulosis greatest in the left hemicolon. Junction of the descending and sigmoid colon demonstrates mild pericolonic stranding favoring diverticulitis. No free fluid/air. 1.3 cm right lobe hepatic cyst. Gallbladder mildly distended without gallstones or biliary distention. Remaining liver, gallbladder, pancreas, spleen, adrenal glands, kidneys, ureters, bladder, and uterus are unremarkable. Mild scattered aortoiliac calcifications are no AAA or pathologic retroperitoneal lymphadenopathy. Osseous structures intact with minimal/mild multilevel thoracolumbar degenerative spondylosis and 6-7 mm L4 spondylolisthesis. Impression: 1. Colonic diverticulosis with mild diverticulitis at junction of descending and sigmoid colon. No complications. 2. Distended gallbladder. Sonogram may yield further information if clinically warranted. 3. Incidental hepatic cyst and chronic bony findings. Comment: Preliminary interpretation made by [facility]. No critical discrepancy.
== END 2021-07-28 04:45 | disposition home or self-care (01) ==
LOC: ED 01:03
DX: K57.32 Diverticulitis of large intestine without perforation or abscess without bleeding (principal); K57.30 Diverticulosis of large intestine without perforation or abscess without bleeding; K52.9 Noninfective gastroenteritis and colitis, unspecified; R10.32 Left lower quadrant pain; E78.5 Hyperlipidemia, unspecified; I10 Essential (primary) hypertension; Z79.899 Other long term (current) drug therapy
CPT/HCPCS: 36000; 36415; 74177; 80053; 81015; 83690; 84484; 85025; 96374; 96375; 96376; 99284; J2270; J2405; A9270-GY

== ENCOUNTER 2022-12-26 04:36 | Emergency (ER) | payer MEDICARE ==
[2022-12-26] MEDS ORDERED: DUONEB 0.5-3 MG/3 ml Neb IH ONE ×2 (04:56→05:10)
--- NOTE | 2022-12-26 05:00 | ERPHSYRPT ---
- History of Present Illness Source: patient Exam Limitations: no limitations Timing/Duration: today Activities at Onset: sleep Severity of Dyspnea-Max: severe Severity of Dyspnea-Current: severe Possible Cause: occasional episodes Modifying Factors: Improves With: albuterol inhaler. Worsens With: activity, deep breath, exertion Associated Symptoms: constant, chest pain/discomfort, heart racing, No cough, No edema, No fever, No leg swelling Hx Tetanus, Diphtheria Vaccination/Date Given: Yes Hx Influenza Vaccination/Date Given: Yes Hx Pneumococcal Vaccination/Date Given: Yes <CLINT MCMAHON - Last Filed: 12/26/22 06:29> <LIZ FRAGOSO - Last Filed: 12/26/22 08:49> - History of Present Illness Time Seen by Provider: 12/26/22 05:00 Physician History: 62-year-old female presents emergency room with shortness of breath and left- sided chest tightness. Patient also reports nausea and 1 episode of vomiting. Tightness radiates into her arms. No previous cardiac history, cardiac cath or stents. She denies any recent illness. No fever, chills, cough, congestion, swelling or abdominal pain reported. She has a history of asthma and used her albuterol inhaler with minimal improvement prior to arrival. Patient says sometimes she feels like her heart beats funny like A-fib. No new medication changes recently. (CLINT MCMAHON) Allergies/Adverse Reactions: Penicillins Allergy (Mild, Verified 12/26/22 05:08) cephalexin [From Keflex] Allergy (Verified 12/26/22 05:08) Home Medications: Alendronate Sodium 1 tab PO WEEKLY 07/28/21 [History] Atorvastatin Calcium 1 tab PO HS 07/28/21 [History] Cetirizine HCl 1 tab PO DAILY 07/28/21 [History] Cholecalciferol (Vitamin D3) [Vitamin D3] 1 cap PO DAILY 07/28/21 [History] Duloxetine HCl 30 mg [Cymbalta 30 MG Capsule] 1 tab PO DAILY 07/28/21 [History] Levothyroxine Sodium [Synthroid] 1 tab PO DAILY 07/28/21 [History] lisinopriL [Lisinopril] 1 tab PO HS 07/28/21 [History] Acetaminophen [Tylenol Arthritis] 650 mg PO Q6H PRN PRN 12/26/22 [History] Albuterol Sulfate [Proair Digihaler] 2 puffs IH Q4H PRN PRN 12/26/22 [History] Calcium Carbonate [Calcium] 600 mg PO LUNCH 12/26/22 [History] Fluticasone/Salmeterol 115/21 [Advair Hfa 115/21 Common canister*] 2 puff IH BID 12/26/22 [History] L.acidoph,Paracasei, B.lactis [Probiotic] 1 each PO HS 12/26/22 [History] Liraglutide [Victoza 2-Boni] 1 mg SQ DAILY 12/26/22 [History] Omeprazole 20 mg PO DAILY 12/26/22 [History] Polyethylene Glycol 3350 17 gm [Miralax Powder 17GM PACKET] 17 gm PO DAILY 12/26/22 [History] Travel Risk - Vaccine Status Have you recieved a Covid-19 vaccination: Yes Medical Records Specialist: Moderna - Vaccination Dates Date of 2cond Vaccination (if applicable): 2020 <CLINT MCMAHON - Last Filed: 12/26/22 06:29> - Review of Systems Constitutional: No Symptoms Eyes: No Symptoms Ears, Nose, & Throat: No Symptoms Respiratory: Dyspnea, Dyspnea on Exertion (PEPPER), No Cough Cardiac: Chest Pain, Palpitations, No Edema Abdominal/Gastrointestinal: Nausea, Vomiting, No Abdominal Pain Musculoskeletal: No Symptoms Skin: No Symptoms Neurological: Headache Psychological: No Symptoms Endocrine: No Symptoms Hematologic/Lymphatic: No Symptoms Immunological/Allergic: No Symptoms All Other Systems: Reviewed and Negative <CLINT MCMAHON - Last Filed: 12/26/22 06:29> - Past Medical History Pertinent Past Medical History: Yes Neurological History: No Pertinent History ENT History: No Pertinent History Cardiac History: High Cholesterol, Hypertension, Other Respiratory History: Asthma Endocrine Medical History: Hypoglycemia, Hypothyroidism, Thyroid Cancer Musculoskeletal History: Osteoarthritis, Other GI Medical History: Diverticulitis, Diverticulosis History: No Pertinent History Psycho-Social History: No Pertinent History Female Reproductive Disorders: No Pertinent History Other Medical History: PMHX: STATES HAS PALPITATIONS OF HER HEART BUT TESTING NOT CONCLUSIVE, DIVERTICULTIS, OSTEOPENIA, LEFT TKR 2019, PREVIOUS SEEN FOR SHOULDER REHAB DUE TO BONE ON BONE. PATIENT HAS BEEN VACCINATED FOR COVID - Past Surgical History Past Surgical History: Yes Neuro Surgical History: No Pertinent History Cardiac: No Pertinent History Respiratory: No Pertinent History Gastrointestinal: No Pertinent History Genitourinary: No Pertinent History Musculoskeletal: Other Female Surgical History: Section Other Surgical History: Carpal tunnel surgery, total knee replacement (lt), thyroid removed due to CA, Colonoscopy - Social History Smoking Status: Former smoker How long have you smoked: 20 Exposure to second hand smoke: No Drug Use: none Patient Lives Alone: No <CLINT MCMAHON - Last Filed: 12/26/22 06:29> - Physical Exam General Appearance: no apparent distress, alert, obese Eye Exam: eyes nml inspection Ears, Nose, Throat Exam: hearing grossly normal, normal ENT inspection Neck Exam: normal inspection, full range of motion Respiratory Exam: normal breath sounds, lungs clear, airway intact, No chest tenderness, No respiratory distress Cardiovascular/Chest Exam: regular rate/rhythm, tachycardia Extremity Exam: No swelling Neurologic Exam: alert, oriented x 3, cooperative, other (tremors) Skin Exam: normal color, warm, dry SpO2 Interpretation: normal O2 Delivery: Room Air <CLINT MCMAHON - Last Filed: 12/26/22 06:29> - Nursing Vital Signs Nursing Vital Signs: Initial Vital Signs Temperature 99.2 F 12/26/22 04:39 Pulse Rate 92 H 12/26/22 04:39 Respiratory Rate 26 H 12/26/22 04:39 Blood Pressure 173/93 12/26/22 04:39 O2 Sat by Pulse Oximetry 92 L 12/26/22 04:39 Pain Scale Pain Intensity 3 - Course Nursing assessment & vital signs reviewed: Yes EKG Interpreted by Me: RATE (91), Sinus Rhythm, NORMAL AXIS, NORMAL INTERVALS, NORMAL QRS, NORMAL ST-T <CLINT MCMAHON - Last Filed: 12/26/22 06:29> Ordered Tests: Active Orders 24 hr Category Date Time Status Environmental Health Manager STAT Care 12/26/22 05:14 Active EKG-ER Only STAT Care 12/26/22 05:14 Active IV Insertion STAT Care 12/26/22 05:14 Active Pulse Oximetry (ED) STAT Care 12/26/22 05:14 Active CHEST WITH CONTRAST [CT] Stat Exams 12/26/22 06:09 Completed BLOOD CULTURE Stat Lab 12/26/22 Ordered BMP Stat Lab 12/26/22 06:42 Completed CBC W DIFF Stat Lab 12/26/22 Completed CULTURE,URINE Stat Lab 12/26/22 06:04 Received D-DIMER QUANTITATIVE Stat Lab 12/26/22 Completed Lactic Acid Stat Lab 12/26/22 05:07 Completed Lactic Acid Stat Lab 12/26/22 07:17 Received MAGNESIUM Stat Lab 12/26/22 Completed NT PRO BNPII Stat Lab 12/26/22 Completed POCT GLUCOSE Stat Lab 12/26/22 05:13 Completed TROPONIN Q4H Lab 12/26/22 Completed TROPONIN Q4H Lab 12/26/22 09:15 Ordered TROPONIN Q4H Lab 12/26/22 13:15 Ordered TSH [TSH, 3RD Generation] Stat Lab 12/26/22 05:16 Completed UA W/RFX UR CULTURE Stat Lab 12/26/22 06:04 Completed VENOUS BLOOD GAS Stat Lab 12/26/22 05:07 Completed Respiratory Therapy Assessment DAILY RT 12/26/22 05:11 Active Medication Summary Generic Name Dose Route Start Last Admin Trade Name Freq PRN Reason Stop Dose Admin Levofloxacin/Dextrose 500 mg in 100 mls @ 100 mls/hr 12/26/22 08:42 Levofloxacin 500mg/100ml D5w IV 12/26/22 09:41 STAT STA Discontinued Medications Generic Name Dose Route Start Last Admin Trade Name Freq PRN Reason Stop Dose Admin Albuterol/Ipratropium Confirm 12/26/22 04:56 Ipratropium/Albuterol Sulfate 3 Ml Ampul.Neb Administered 12/26/22 04:57 Dose 3 ml IH .STK-MED ONE Albuterol/Ipratropium 3 ml 12/26/22 05:10 12/26/22 05:00 Ipratropium/Albuterol Sulfate 3 Ml Ampul.Neb IH 12/26/22 05:11 3 ml STAT ONE Administration Methylprednisolone Sodium 0 mg 12/26/22 05:14 12/26/22 05:27 Succinate 125 mg/ Sterile IV 12/26/22 05:15 125 mg Water 2 ml STAT ONE Administration Sodium Chloride 1,000 mls @ 999 mls/hr 12/26/22 05:23 12/26/22 06:32 Sodium Chloride 0.9% 1000 Ml IV 12/26/22 06:23 Infused .Q1H1M STA Infusion Sodium Chloride Confirm 12/26/22 05:26 Sodium Chloride 0.9% 1000 Ml Administered 12/26/22 05:27 Dose 1,000 mls @ ud .ROUTE .STK-MED ONE Methylprednisolone Sodium Succinate Confirm 12/26/22 05:26 Methylprednis Sod Succ 125 Mg/2 Ml Vial Administered 12/26/22 05:27 Dose 125 mg .ROUTE .STK-MED ONE Ondansetron HCl 4 mg 12/26/22 05:15 12/26/22 05:27 Ondansetron Hcl 4 Mg/2 Ml Vial IV 12/26/22 05:16 4 mg STAT ONE Administration Ondansetron HCl Confirm 12/26/22 05:26 Ondansetron Hcl 4 Mg/2 Ml Vial Administered 12/26/22 05:27 Dose 4 mg .ROUTE .STK-MED ONE Sterile Water Confirm 12/26/22 05:26 Water For Injection,Sterile 10 Ml Vial Administered 12/26/22 05:27 Dose 10 ml IJ .STK-MED ONE Lab/Rad Data: Laboratory Result Diagrams 12/26/22 Unknown 12/26/22 06:42 Laboratory Results 12/26/22 12/26/22 12/26/22 Range/Units Unknown Unknown Unknown WBC (4.0-10.5) x10^3/uL RBC (4.1-5.4) x10^6/uL Hgb (12.0-16.0) g/dL Hct (35-47) % MCV (78-100) fL MCH (26-32) pg MCHC (32-36) g/dL RDW (11.5-14.0) % Plt Count (150-450) x10^3/uL MPV (7.5-11.0) fL Gran % (36.0-66.0) % Immature Gran % (Auto) (0.00-0.4) % Nucleat RBC Rel Count (0.00-0.1) % Eos # (Auto) (0-0.5) x10^3/uL Immature Gran # (Auto) (0.00-0.03) x10^3u/L Absolute Lymphs (auto) (1.0-4.6) x10^3/uL Absolute Monos (auto) (0.0-1.3) x10^3/uL Absolute Nucleated RBC (0.00-0.01) x10^3u/L Lymphocytes % (24.0-44.0) % Monocytes % (0.0-12.0) % Eosinophils % (0.00-5.0) % Basophils % (0.0-0.4) % Absolute Granulocytes (1.4-6.9) x10^3/uL Basophils # (0-0.4) x10^3/uL D-Dimer 1.98 H* (0.0-0.50) mg/L pO2/FiO2 Ratio % VBG pH (7.32-7.42) VBG pCO2 at Pat Temp (42-55) mm/Hg VBG pO2 at Pat Temp (25-40) mm/Hg VBG HCO3 (22-28) meq/L VBG O2 Sat (Alpa) (95-100) VBG Base Excess (-2.0-2.0) VBG Hemoglobin VBG Carboxyhemoglobin (0.0-6.9) % T HGB POC Potassium (3.5-5.1) Sodium (137-145) mmol/L Potassium (3.5-5.1) mmol/L Chloride (98-107) mmol/L Carbon Dioxide (22-30) mmol/L Anion Gap (5-15) MEQ/L BUN (7-17) mg/dL Creatinine (0.52-1.04) mg/dL Estimated GFR ML/MIN Glucose (74-106) mg/dL POC Glucometer (74 to 106) mg/dL Lactic Acid (0.4-2.0) Calcium (8.4-10.2) mg/dL Magnesium (1.6-2.3) mg/dL Troponin I < 0.012 (0.000-0.034) ng/mL NT-Pro-B Natriuret Pep 146 (<300) pg/mL TSH 3rd Generation (0.47-4.68) mIU/L Urine Color (Yellow) Urine Appearance (Clear) Urine pH (4.6-8.0) Ur Specific [place] (1.005-1.030) Urine Protein (Negative) Urine Glucose (UA) (Negative) mg/dL Urine Ketones (Negative) Urine Blood (Negative) Urine Nitrite (Negative) Urine Bilirubin (Negative) Urine Urobilinogen (0.2) mg/dL Ur Leukocyte Esterase (Negative) U Hyaline Cast (Auto) (0-2) /LPF Urine Microscopic RBC (0-5) /HPF Urine Microscopic WBC (0-5) /HPF Ur Epithelial Cells (None Seen) /HPF Urine Bacteria (None Seen) /HPF Urine Culture Reflexed (NO) Influenza Type A Ag (NEGATIVE) Influenza Type B Ag (NEGATIVE) RSV (PCR) (NEGATIVE) SARS-CoV-2 (PCR) (NEGATIVE) 12/26/22 12/26/22 12/26/22 Range/Units Unknown Unknown 06:42 WBC 10.2 (4.0-10.5) x10^3/uL RBC 4.29 (4.1-5.4) x10^6/uL Hgb 13.1 (12.0-16.0) g/dL Hct 40.0 (35-47) % MCV 93.2 (78-100) fL MCH 30.5 (26-32) pg MCHC 32.8 (32-36) g/dL RDW 13.2 (11.5-14.0) % Plt Count 269 (150-450) x10^3/uL MPV 9.5 (7.5-11.0) fL Gran % 85.0 H (36.0-66.0) % Immature Gran % (Auto) 0.3 (0.00-0.4) % Nucleat RBC Rel Count 0.0 (0.00-0.1) % Eos # (Auto) 0.07 (0-0.5) x10^3/uL Immature Gran # (Auto) 0.03 (0.00-0.03) x10^3u/L Absolute Lymphs (auto) 1.10 (1.0-4.6) x10^3/uL Absolute Monos (auto) 0.28 (0.0-1.3) x10^3/uL Absolute Nucleated RBC 0.00 (0.00-0.01) x10^3u/L Lymphocytes % 10.8 L (24.0-44.0) % Monocytes % 2.7 (0.0-12.0) % Eosinophils % 0.7 (0.00-5.0) % Basophils % 0.5 (0.0-0.4) % Absolute Granulocytes 8.70 H (1.4-6.9) x10^3/uL Basophils # 0.05 (0-0.4) x10^3/uL D-Dimer (0.0-0.50) mg/L pO2/FiO2 Ratio % VBG pH (7.32-7.42) VBG pCO2 at Pat Temp (42-55) mm/Hg VBG pO2 at Pat Temp (25-40) mm/Hg VBG HCO3 (22-28) meq/L VBG O2 Sat (Alpa) (95-100) VBG Base Excess (-2.0-2.0) VBG Hemoglobin VBG Carboxyhemoglobin (0.0-6.9) % T HGB POC Potassium (3.5-5.1) Sodium 140 (137-145) mmol/L Potassium 4.2 (3.5-5.1) mmol/L Chloride 106 (98-107) mmol/L Carbon Dioxide 23 (22-30) mmol/L Anion Gap 15.4 H (5-15) MEQ/L BUN 17 (7-17) mg/dL Creatinine 0.61 (0.52-1.04) mg/dL Estimated GFR > 60.0 ML/MIN Glucose 144 H (74-106) mg/dL POC Glucometer (74 to 106) mg/dL Lactic Acid (0.4-2.0) Calcium 9.3 (8.4-10.2) mg/dL Magnesium 1.6 (1.6-2.3) mg/dL Troponin I (0.000-0.034) ng/mL NT-Pro-B Natriuret Pep (<300) pg/mL TSH 3rd Generation (0.47-4.68) mIU/L Urine Color (Yellow) Urine Appearance (Clear) Urine pH (4.6-8.0) Ur Specific [place] (1.005-1.030) Urine Protein (Negative) Urine Glucose (UA) (Negative) mg/dL Urine Ketones (Negative) Urine Blood (Negative) Urine Nitrite (Negative) Urine Bilirubin (Negative) Urine Urobilinogen (0.2) mg/dL Ur Leukocyte Esterase (Negative) U Hyaline Cast (Auto) (0-2) /LPF Urine Microscopic RBC (0-5) /HPF Urine Microscopic WBC (0-5) /HPF Ur Epithelial Cells (None Seen) /HPF Urine Bacteria (None Seen) /HPF Urine Culture Reflexed (NO) Influenza Type A Ag (NEGATIVE) Influenza Type B Ag (NEGATIVE) RSV (PCR) (NEGATIVE) SARS-CoV-2 (PCR) (NEGATIVE) 12/26/22 12/26/22 12/26/22 Range/Units 06:04 05:53 05:16 WBC (4.0-10.5) x10^3/uL RBC (4.1-5.4) x10^6/uL Hgb (12.0-16.0) g/dL Hct (35-47) % MCV (78-100) fL MCH (26-32) pg MCHC (32-36) g/dL RDW (11.5-14.0) % Plt Count (150-450) x10^3/uL MPV (7.5-11.0) fL Gran % (36.0-66.0) % Immature Gran % (Auto) (0.00-0.4) % Nucleat RBC Rel Count (0.00-0.1) % Eos # (Auto) (0-0.5) x10^3/uL Immature Gran # (Auto) (0.00-0.03) x10^3u/L Absolute Lymphs (auto) (1.0-4.6) x10^3/uL Absolute Monos (auto) (0.0-1.3) x10^3/uL Absolute Nucleated RBC (0.00-0.01) x10^3u/L Lymphocytes % (24.0-44.0) % Monocytes % (0.0-12.0) % Eosinophils % (0.00-5.0) % Basophils % (0.0-0.4) % Absolute Granulocytes (1.4-6.9) x10^3/uL Basophils # (0-0.4) x10^3/uL D-Dimer (0.0-0.50) mg/L pO2/FiO2 Ratio % VBG pH (7.32-7.42) VBG pCO2 at Pat Temp (42-55) mm/Hg VBG pO2 at Pat Temp (25-40) mm/Hg VBG HCO3 (22-28) meq/L VBG O2 Sat (Alpa) (95-100) VBG Base Excess (-2.0-2.0) VBG Hemoglobin VBG Carboxyhemoglobin (0.0-6.9) % T HGB POC Potassium (3.5-5.1) Sodium (137-145) mmol/L Potassium (3.5-5.1) mmol/L Chloride (98-107) mmol/L Carbon Dioxide (22-30) mmol/L Anion Gap (5-15) MEQ/L BUN (7-17) mg/dL Creatinine (0.52-1.04) mg/dL Estimated GFR ML/MIN Glucose (74-106) mg/dL POC Glucometer (74 to 106) mg/dL Lactic Acid (0.4-2.0) Calcium (8.4-10.2) mg/dL Magnesium (1.6-2.3) mg/dL Troponin I (0.000-0.034) ng/mL NT-Pro-B Natriuret Pep (<300) pg/mL TSH 3rd Generation 0.211 L (0.47-4.68) mIU/L Urine Color Yellow (Yellow) Urine Appearance Clear (Clear) Urine pH 5.0 (4.6-8.0) Ur Specific [place] 1.015 (1.005-1.030) Urine Protein Negative (Negative) Urine Glucose (UA) Negative (Negative) mg/dL Urine Ketones Negative (Negative) Urine Blood Negative (Negative) Urine Nitrite Negative (Negative) Urine Bilirubin Negative (Negative) Urine Urobilinogen 0.2 (0.2) mg/dL Ur Leukocyte Esterase Small A (Negative) U Hyaline Cast (Auto) NONE SEEN (0-2) /LPF Urine Microscopic RBC 0-2 (0-5) /HPF Urine Microscopic WBC 11-20 A (0-5) /HPF Ur Epithelial Cells Rare (None Seen) /HPF Urine Bacteria None Seen (None Seen) /HPF Urine Culture Reflexed YES (NO) Influenza Type A Ag NEGATIVE (NEGATIVE) Influenza Type B Ag NEGATIVE (NEGATIVE) RSV (PCR) NEGATIVE (NEGATIVE) SARS-CoV-2 (PCR) NEGATIVE (NEGATIVE) 12/26/22 12/26/22 Range/Units 05:13 05:07 WBC (4.0-10.5) x10^3/uL RBC (4.1-5.4) x10^6/uL Hgb (12.0-16.0) g/dL Hct (35-47) % MCV (78-100) fL MCH (26-32) pg MCHC (32-36) g/dL RDW (11.5-14.0) % Plt Count (150-450) x10^3/uL MPV (7.5-11.0) fL Gran % (36.0-66.0) % Immature Gran % (Auto) (0.00-0.4) % Nucleat RBC Rel Count (0.00-0.1) % Eos # (Auto) (0-0.5) x10^3/uL Immature Gran # (Auto) (0.00-0.03) x10^3u/L Absolute Lymphs (auto) (1.0-4.6) x10^3/uL Absolute Monos (auto) (0.0-1.3) x10^3/uL Absolute Nucleated RBC (0.00-0.01) x10^3u/L Lymphocytes % (24.0-44.0) % Monocytes % (0.0-12.0) % Eosinophils % (0.00-5.0) % Basophils % (0.0-0.4) % Absolute Granulocytes (1.4-6.9) x10^3/uL Basophils # (0-0.4) x10^3/uL D-Dimer (0.0-0.50) mg/L pO2/FiO2 Ratio 21.0 % VBG pH 7.37 (7.32-7.42) VBG pCO2 at Pat Temp 45 (42-55) mm/Hg VBG pO2 at Pat Temp 30 (25-40) mm/Hg VBG HCO3 26.0 (22-28) meq/L VBG O2 Sat (Alpa) 52.4 L (95-100) VBG Base Excess 0.3 (-2.0-2.0) VBG Hemoglobin 13.8 VBG Carboxyhemoglobin 3.0 (0.0-6.9) % T HGB POC Potassium 4.1 (3.5-5.1) Sodium (137-145) mmol/L Potassium (3.5-5.1) mmol/L Chloride (98-107) mmol/L Carbon Dioxide (22-30) mmol/L Anion Gap (5-15) MEQ/L BUN (7-17) mg/dL Creatinine (0.52-1.04) mg/dL Estimated GFR ML/MIN Glucose (74-106) mg/dL POC Glucometer 138 H (74 to 106) mg/dL Lactic Acid 2.2 H (0.4-2.0) Calcium (8.4-10.2) mg/dL Magnesium (1.6-2.3) mg/dL Troponin I (0.000-0.034) ng/mL NT-Pro-B Natriuret Pep (<300) pg/mL TSH 3rd Generation (0.47-4.68) mIU/L Urine Color (Yellow) Urine Appearance (Clear) Urine pH (4.6-8.0) Ur Specific [place] (1.005-1.030) Urine Protein (Negative) Urine Glucose (UA) (Negative) mg/dL Urine Ketones (Negative) Urine Blood (Negative) Urine Nitrite (Negative) Urine Bilirubin (Negative) Urine Urobilinogen (0.2) mg/dL Ur Leukocyte Esterase (Negative) U Hyaline Cast (Auto) (0-2) /LPF Urine Microscopic RBC (0-5) /HPF Urine Microscopic WBC (0-5) /HPF Ur Epithelial Cells (None Seen) /HPF Urine Bacteria (None Seen) /HPF Urine Culture Reflexed (NO) Influenza Type A Ag (NEGATIVE) Influenza Type B Ag (NEGATIVE) RSV (PCR) (NEGATIVE) SARS-CoV-2 (PCR) (NEGATIVE) - Progress Progress: improved, re-examined Air Movement: fair Blood Culture(s) Obtained: Yes Antibiotics given: Yes Counseled pt/family regarding: lab results, diagnosis, need for follow-up, rad results <LIZ FRAGOSO - Last Filed: 12/26/22 08:49> - Progress Progress Note: 12/26/22 08:43 Clinically, the patient states she is feeling much better after the interventions that Dr. Mcmahon prescribed. CT scan of the chest with contrast is negative for pulmonary embolus. There are bilateral lung multifocal patchy airspace infiltrates. Predominantly right upper and right middle lobe as well as bilateral lower lobes. This patient's medical issue is 1 of moderate complexity. Level complexity in the work-up performed is based on review of the patient's past medical history, medication list, review of drug allergy list, history present illness and physical findings on examination. I reviewed the work-up results that Dr. Mcmahon had ordered as well as the CAT scan of the chest with contrast interpretation of the radiologist. Patient appears to have pneumonia. We will provide her with Levaquin 500 mg orally intravenous now and I will remotely send prescriptions fo r prednisone, hydrocodone elixir and azithromycin to her pharmacy for further treatment as an outpatient. (LIZ FRAGOSO) Medical Desision Making - Independent Historian Additional History obtained from: Spouse - Diagnostic Testing Diagnostic test were ordered, analyzed, and reviewed by me: Yes Radiological Interpretation: Reviewed by me, Teleradiologist Report - Risk of complications The pt has a mod risk of morbidity or mortality based on: Need for prescription drug management <LIZ FRAGOSO - Last Filed: 12/26/22 08:49> - Departure Critical Care Time: No <CLINT MCMAHON - Last Filed: 12/26/22 06:29> - Departure Departure Disposition: Home Critical Care Time: No <LIZ FRAGOSO - Last Filed: 12/26/22 08:49> - Departure Clinical Impression: Hyperthyroidism, Palpitations, Elevated d-dimer, SOB (shortness of breath), Bilateral pulmonary infiltrates Condition: Stable Referrals: HANNAH JONES [Primary Care Provider] - Follow up/PCP as directed Instructions: Shortness of Breath (Dyspnea) (DC) Additional Instructions: Use your albuterol inhaler at home 4 times a day while awake for at least 48 hours. Take your antibiotics and other medications as prescribed. Call your primary care provider on 12/28/2022 to make arrange for follow-up in the next 3-5 days. Prescriptions: Hydrocodone/Acetaminophen [Hydrocodone-Acetamn 7.5-325/15] 10 ml PO Q8H PRN PRN #120 ml MDD 30 ml PRN Reason: Cough Prednisone 10 mg [Deltasone 10 mg] 10 mg PO TID #12 tablet Azithromycin 250 mg [Zithromax 250 MG TABLET] 250 mg PO ZPACK #6 tablet
[2022-12-26 05:05] VITALS: TEMP 99.2
[2022-12-26] MEDS ORDERED: solu-MEDROL 125 MG, Sterile H2O 10 ml 2 ML IV ONE ×2 (05:14)
[2022-12-26] MEDS ORDERED: Zofran 4 MG/2 ML VIAL IV ONE (05:15)
[2022-12-26 05:17] LABS: Lactic Acid 2.2 (0.4-2.0); VBG BASE EXCESS 0.3 (-2.0-2.0); VBG HEMOGLOBIN 13.8; VBG O2 SATURATION 52.4 (95-100); VBG POTASSIUM 4.1 (3.5-5.1); VBG pH 7.37 (7.32-7.42)
[2022-12-26 05:23] LABS: BASOPHIL % 0.5 % (0.0-0.4); Basophil (Absolute #) 0.05 x10^3/uL (0-0.4); Eosinophil % 0.7 % (0.00-5.0); Eosinophil (Absolute #) 0.07 x10^3/uL (0-0.5); Hemoglobin 13.1 g/dL (12.0-16.0); IMMATURE GRAN # 0.03 x10^3u/L (0.00-0.03); IMMATURE GRAN % 0.3 % (0.00-0.4); Lymphocytes % 10.8 % (24.0-44.0); Mean Cell Volume 93.2 fL (78-100); Mean Corpuscular Hemoglobin 30.5 pg (26-32); Mean Corpuscular Hgb Concent. 32.8 g/dL (32-36); Mean Platelet Volume 9.5 fL (7.5-11.0); Monocyte (Absolute #) 0.28 x10^3/uL (0.0-1.3); Monocytes % 2.7 % (0.0-12.0); Platelet Count 269 x10^3/uL (150-450); Red Blood Count 4.29 x10^6/uL (4.1-5.4); Red Cell Distribution Width 13.2 % (11.5-14.0); White Blood Count 10.2 x10^3/uL (4.0-10.5)
[2022-12-26] MEDS ORDERED: Sodium Chloride 0.9% 1000 ML 1,000 ML IV STA (05:23)
[2022-12-26] MEDS ORDERED: solu-MEDROL ONE (05:26)
[2022-12-26] MEDS ORDERED: Sodium Chloride 0.9% 1000 ML 1,000 ML ONE (05:26)
[2022-12-26] MEDS ORDERED: Zofran 4 MG/2 ML VIAL ONE (05:26)
[2022-12-26] MEDS ORDERED: Sterile H2O 10 ml IJ ONE (05:26)
[2022-12-26 06:57] LABS: INFLUENZA A NEGATIVE (NEGATIVE); INFLUENZA B NEGATIVE (NEGATIVE); RESPIRATORY SYNCTIAL VIRUS NEGATIVE (NEGATIVE); SARS-CoV-2 Xpert Express NEGATIVE (NEGATIVE)
[2022-12-26 07:08] LABS: ANION GAP 15.4 MEQ/L (5-15); BLOOD UREA NITROGEN 17 mg/dL (7-17); CHLORIDE 106 mmol/L (98-107); Calcium 9.3 mg/dL (8.4-10.2); Carbon Dioxide 23 mmol/L (22-30); Creatinine 1 0.61 mg/dL (0.52-1.04); EST GLOMERULAR FILTRATION RATE > 60.0 ML/MIN; Glucose 144 mg/dL (74-106); Potassium 4.2 mmol/L (3.5-5.1); SODIUM 140 mmol/L (137-145)
[2022-12-26 07:13] LABS: Appearance Clear (Clear); Bacteria None Seen /HPF (None Seen); Bilirubin Negative (Negative); Blood Negative (Negative); Epithelial Cells Rare /HPF (None Seen); Glucose, Urine Negative (Negative); Hyaline Casts NONE SEEN /LPF (0-2); Ketones Negative (Negative); Leukocyte Esterase Small (Negative); Nitrite Negative (Negative); Protein,Urine Dip Negative (Negative); RBC 0-2 /HPF (0-5); Specific Gravity 1.015 (1.005-1.030); Urobilinogen 0.2 mg/dL (0.2)
[2022-12-26 07:23] LABS: ADD URINE CULTURE? YES (NO)
--- NOTE | 2022-12-26 08:35 | XRAY ---
CLINICAL HISTORY:chest pain, hypoxia COMPARISON:None. TECHNIQUE:Multislice axial CT of the chest with sagittal and coronal reconstruction with IV contrast was performed. FINDINGS: Bilateral lung multifocal patchy airspace infiltrates predominantly the right upper lobe, middle lobe and bilateral lower lobes. No obvious consolidation. No evidence of pulmonary emboli. No evidence of mass. No pleural effusion. No evidence of pneumothorax. Heart size within normal limits, and without pericardial effusion. No pathologically enlarged mediastinal lymph node is identified. No acute abnormality of thorax Bony structures. Scanned upper abdomen: 1 cm hypodense lesion in liver noted. Ultrasound correlation if clinically indicated. IMPRESSION: CT findings suggestive of infective etiology of bilateral lungs as described. No evidence of pulmonary emboli. Electronically Signed by: Daxa Villagomez MD. (12/26/2022 07:33:34 [employer])
[2022-12-26] MEDS ORDERED: Levofloxacin 500MG/100ML D5W 500 MG/100 ML BAG IV STA (08:42)
[2022-12-26] MEDS ORDERED: Levofloxacin 500MG/100ML D5W 500 MG/100 ML BAG IV ONE (08:45)
[2022-12-26 08:54] VITALS: O2SAT 96
[2022-12-26 10:00] VITALS: BP 105/67; PULSE 89; RESP 21
== END 2022-12-26 10:01 | disposition home or self-care (01) ==
LOC: ED 04:36
DX: E05.90 Thyrotoxicosis, unspecified without thyrotoxic crisis or storm (principal); R00.2 Palpitations; R79.1 Abnormal coagulation profile; R06.02 Shortness of breath; R91.8 Other nonspecific abnormal finding of lung field; R07.9 Chest pain, unspecified; R11.2 Nausea with vomiting, unspecified; E78.5 Hyperlipidemia, unspecified; I10 Essential (primary) hypertension; Z79.52 Long term (current) use of systemic steroids; Z79.899 Other long term (current) drug therapy; Z79.85 Long-term (current) use of injectable non-insulin antidiabetic drugs; Z79.891 Long term (current) use of opiate analgesic; Z20.828 Contact with and (suspected) exposure to other viral communicable diseases
CPT/HCPCS: 0241U; 36000; 36415; 71260; 80048; 81001; 82805; 82947; 83605; 83735; 83880; 84443; 84484; 85025; 85379; 87086; 93005; 93041; 94640; 94760; 96360; 96365; 96374; 96375; 99285; J1956; J2405; J2930; A9270-GY

== ENCOUNTER 2023-10-19 13:26 | Day surgery (SDC) | payer MEDICARE ==
[2023-10-19] MEDS ORDERED: LIDOCAINE HCL 2% 100 MG/5 ML IJ ONE (13:27)
[2023-10-19] MEDS ORDERED: DIPRIVAN 200 MG/20 ML IV ONE (16:08)
--- NOTE | 2023-10-19 16:49 | XRAY ---
Indication: Bilateral L4-S1 MBB. Intraoperative fluoroscopy provided for 21 seconds. Single digital spot image submitted for interpretation demonstrates posterior needle tips projecting over the expected left and right L4-S1 nerve roots. Correlate with intraoperative findings/report.
--- NOTE | 2023-10-19 16:52 | XRAY ---
21 seconds of fluoroscopy was used in surgery for a bilateral L4-S1 MBB.
[2023-10-19] MEDS ORDERED: Lactated Ringers 1,000 ML IV ONE (17:27)
== END 2023-10-19 16:35 | disposition home or self-care (01) ==
LOC: SDC-PAIN 13:26
PROVIDERS: ATTEND Psychiatry & Neurology Pain Medicine
DX: M47.816 Spondylosis without myelopathy or radiculopathy, lumbar region (principal)
CPT/HCPCS: 64493; 64494; 72020; 77002; J2704

== ENCOUNTER 2023-11-30 07:31 | Day surgery (SDC) | payer MEDICARE ==
[2023-11-30] MEDS ORDERED: BUPIVACAINE 0.5% VIAL IJ ONE (07:32)
[2023-11-30] MEDS ORDERED: DIPRIVAN 200 MG/20 ML IV ONE ×2 (10:03→10:12)
--- NOTE | 2023-11-30 11:22 | XRAY ---
Indication: Bilateral L4-S1 MBB. Intraoperative fluoroscopy provided for 27 seconds. Single digital spot image submitted for interpretation demonstrates posterior needle tips projecting over expected left and right right L4-S1 nerve roots. Correlate with intraoperative findings/report.
--- NOTE | 2023-11-30 11:40 | XRAY ---
27 seconds of fluoroscopy was used in surgery for a bilateral L4-S1 MBB.
[2023-11-30] MEDS ORDERED: Lactated Ringers 1,000 ML IV ONE (14:32)
== END 2023-11-30 10:38 ==
LOC: SDC-PAIN 07:31
PROVIDERS: ATTEND Psychiatry & Neurology Pain Medicine
DX: M47.816 Spondylosis without myelopathy or radiculopathy, lumbar region (principal); E11.9 Type 2 diabetes mellitus without complications
CPT/HCPCS: 64493; 64494; 72020; 77002; 82947; 93005; J2704

== ENCOUNTER 2023-12-28 06:41 | Day surgery (SDC) | payer MEDICARE ==
[2023-12-28] MEDS ORDERED: LIDOCAINE HCL 1% 50 MG/5 ML VL PF IJ ONE (06:42)
[2023-12-28] MEDS ORDERED: BUPIVACAINE 0.5% VIAL IJ ONE (06:42)
[2023-12-28] MEDS ORDERED: Depo-Medrol 40 MG/ML IM ONE (06:42)
[2023-12-28] MEDS ORDERED: DIPRIVAN 200 MG/20 ML IV ONE (07:55)
--- NOTE | 2023-12-28 09:29 | XRAY ---
Indication: Right L4-S1 RFA. Intraoperative fluoroscopy provided for 22 seconds. 4 digital spot images submitted for interpretation demonstrates posterior needle tips projecting over the expected right L4-S1 nerve roots. Correlate with intraoperative findings/report.
[2023-12-28] MEDS ORDERED: Lactated Ringers 1,000 ML IV ONE (09:49)
--- NOTE | 2023-12-28 10:30 | XRAY ---
22 seconds of fluoroscopy was used in surgery for a right L4-S1 RFA.
== END 2023-12-28 08:35 | disposition home or self-care (01) ==
LOC: SDC-PAIN 06:41
PROVIDERS: ATTEND Psychiatry & Neurology Pain Medicine
DX: M47.816 Spondylosis without myelopathy or radiculopathy, lumbar region (principal); Z79.899 Other long term (current) drug therapy
CPT/HCPCS: 64635; 64636; 72100; 77002; 82947; J2001; J2704

== ENCOUNTER 2024-01-04 06:35 | Day surgery (SDC) | payer MEDICARE ==
[2024-01-04] MEDS ORDERED: LIDOCAINE HCL 1% 50 MG/5 ML VL PF IJ ONE (06:36)
[2024-01-04] MEDS ORDERED: Depo-Medrol 40 MG/ML IM ONE (06:36)
[2024-01-04] MEDS ORDERED: BUPIVACAINE 0.5% VIAL IJ ONE (06:36)
[2024-01-04] MEDS ORDERED: DIPRIVAN 200 MG/20 ML IV ONE (08:03)
[2024-01-04] MEDS ORDERED: Lactated Ringers 1,000 ML IV ONE (09:36)
--- NOTE | 2024-01-04 10:57 | XRAY ---
Indication: Left L4-S1 RFA. Intraoperative fluoroscopy provided for 34 seconds. 3 digital spot image submitted for interpretation demonstrates posterior needle tips projecting over expected left L4-S1 nerve roots. Correlate with intraoperative findings/report.
--- NOTE | 2024-01-04 12:06 | XRAY ---
34 seconds of fluoroscopy was used in surgery for a left L4-S1 RFA.
== END 2024-01-04 08:42 ==
LOC: SDC-PAIN 06:35
PROVIDERS: ATTEND Psychiatry & Neurology Pain Medicine
DX: M47.817 Spondylosis without myelopathy or radiculopathy, lumbosacral region (principal); E11.9 Type 2 diabetes mellitus without complications
CPT/HCPCS: 64635; 64636; 72100; 77002; 82947; J2001; J2704